=== PATIENT | male | born 1965 | race Caucasian/White ===

== ENCOUNTER 2016-02-10 10:35 | Inpatient (IN) | payer BC ==
[2016-01-22 11:04] VITALS: BMI 25.7
[2016-01-22 12:19] VITALS: BP_SYST 122; RESP 14; TEMP 97.9
[~2016-02-10] VITALS: Ht 172.7 cm; Wt 71.7 kg
[2016-02-17 08:16] VITALS: BMI 24.5
[2016-02-17 08:47] VITALS: BP_SYST 104; TEMP 97.5
[2016-03-02] VITALS (23 sets, daily range): BP systolic 86–107; RESP 12–18; TEMP 97.6–98.7; BMI 24.0
[2016-03-02] MEDS ORDERED: CEFOXITIN 2,000 MG in SODIUM CHLORIDE 0.9% 100 ML IV ONE (06:55)
[2016-03-02] MEDS ORDERED: ACETAMINOPHEN IV ONE (07:00)
[2016-03-02] MEDS ORDERED: FILL PIGGYBACK IV ONE (07:00)
[2016-03-02] MEDS ORDERED: GLYCOPYRROLATE 0.2 MG/ML VIAL IV ONE ×2 (07:15→14:27)
[2016-03-02] MEDS ORDERED: MIDAZOLAM 2 MG/2 ML INJ IV ONE (07:15)
[2016-03-02] MEDS ORDERED: LIDOCAINE 1% BUFFERED 1 ML SYR INTRADERM PRN (07:15)
[2016-03-02] MEDS ORDERED: ACETAMINOPHEN IV 100 ML IV ONE (08:06)
[2016-03-02] MEDS: LACT RINGERS 1,000 ML IV SCH ×2 (08:13→12:10)
[2016-03-02] MEDS ORDERED: ONDANSETRON 4 MG VIAL IV PRN ×2 (09:00→10:00)
[2016-03-02] MEDS ORDERED: NALOXONE 0.4 MG/ML AMP IV PRN (09:00)
[2016-03-02] MEDS ORDERED: MORPHINE 2 MG/ML SYR IV PRN ×2 (09:00→10:00)
[2016-03-02] MEDS ORDERED: hydrOXYzine 25 MG TAB PO PRN (09:00)
[2016-03-02] MEDS ORDERED: OXYCODONE 5 MG TAB PO PRN (10:00)
[2016-03-02] MEDS ORDERED: MEPERIDINE 25 MG/ML IV PRN (10:00)
[2016-03-02] MEDS ORDERED: MORPHINE 4 MG/ML SYR IV PRN (10:00)
[2016-03-02] MEDS ORDERED: DILAUDID 1 MG/ML AMP IV PRN (10:00)
[2016-03-02] MEDS ORDERED: MORPHINE PF 0.5 MG/ML 10 ML IV ONE (10:17)
[2016-03-02] MEDS ORDERED: PROMETHAZINE 25 MG/ML VIAL IV PRN (12:15)
[2016-03-02] MEDS ORDERED: CHLORASEPTIC 180 ML BTL PO PRN (12:15)
[2016-03-02] MEDS: BUPIV/FENT 0.125%-2MCG/ML 100 ML EPIDURAL SCH ×3 (12:19→19:50)
[2016-03-02] MEDS ORDERED: FENTANYL 100 MCG/2 ML AMP IV ONE (14:27)
[2016-03-02] MEDS ORDERED: PROPOFOL 20 ML PER ML IV ONE (14:27)
[2016-03-02] MEDS ORDERED: LIDOCAINE 2% SYR 5 ML IV ONE (14:27)
[2016-03-02] MEDS ORDERED: ROCURONIUM 50 MG VIAL IV ONE (14:27)
[2016-03-02] MEDS ORDERED: NEOSTIGMINE 10 MG/10 ML VIAL IV ONE (14:27)
[2016-03-02] MEDS ORDERED: ONDANSETRON 4 MG VIAL IV PUSH ONE (14:27)
[2016-03-02] MEDS ORDERED: MISSING DOSE XX ONE ×2 (15:35→19:45)
[2016-03-02] MEDS: BUTORPHANOL 1 MG/ML VIAL IV PRN ×2 (16:05→19:58)
[2016-03-02] MEDS: PIPERACIL/TAZO 3.375GM/50ML 50 ML IV SCH (18:20)
[2016-03-02] MEDS: **ONLY ANESTEHSIA MAY ORDER OPIATES WHILE ON EPIDURAL XX SCH (19:45)
[2016-03-02] MEDS: FAMOTIDINE 20 MG INJ IV SCH (19:55)
[2016-03-02] MEDS: PREDNISOLONE ACET 1% OP SUSP EYE RT SCH (19:57)
[2016-03-02] MEDS: DORZOL/TIM 2%-0.5% 10 ML EYE RT SCH (19:57)
[2016-03-02] MEDS: KETOROLAC 0.5% EYE RT SCH (19:58)
[2016-03-03] VITALS (7 sets, daily range): BP systolic 93–100; RESP 16–18; TEMP 98.1–99.2
[2016-03-03] MEDS: PIPERACIL/TAZO 3.375GM/50ML 50 ML IV SCH ×5 (00:12→23:50)
[2016-03-03] MEDS: D5-1/2-NS W/KCL 20MEQ/L 1,000 ML IV SCH ×3 (00:15→18:20)
[2016-03-03] MEDS: BUPIV/FENT 0.125%-2MCG/ML 100 ML EPIDURAL SCH ×3 (04:38→22:38)
[2016-03-03] MEDS: **ONLY ANESTEHSIA MAY ORDER OPIATES WHILE ON EPIDURAL XX SCH ×2 (08:00→19:59)
[2016-03-03] MEDS: FAMOTIDINE 20 MG INJ IV SCH ×2 (08:20→21:43)
[2016-03-03] MEDS: PREDNISOLONE ACET 1% OP SUSP EYE RT SCH ×2 (08:21→21:44)
[2016-03-03] MEDS: DORZOL/TIM 2%-0.5% 10 ML EYE RT SCH ×2 (08:21→21:44)
[2016-03-03] MEDS: KETOROLAC 0.5% EYE RT SCH ×2 (08:21→21:44)
[2016-03-03] MEDS: BUTORPHANOL 1 MG/ML VIAL IV PRN ×3 (09:42→22:16)
[2016-03-03] MEDS: BUPROPION SR 100 MG TAB PO SCH (09:42)
[2016-03-03] MEDS ORDERED: MISSING DOSE XX ONE (14:55)
[2016-03-04] MEDS: D5-1/2-NS W/KCL 20MEQ/L 1,000 ML IV SCH ×2 (02:43→20:15)
[2016-03-04 03:40] VITALS: BP_SYST 100; RESP 18; TEMP 99.2
[2016-03-04] MEDS: PIPERACIL/TAZO 3.375GM/50ML 50 ML IV SCH ×3 (06:44→18:08)
[2016-03-04 07:13] VITALS: BP_SYST 97; RESP 16; TEMP 98
[2016-03-04] MEDS: KETOROLAC 0.5% EYE RT SCH ×2 (07:45→21:34)
[2016-03-04] MEDS: DORZOL/TIM 2%-0.5% 10 ML EYE RT SCH ×2 (07:45→21:34)
[2016-03-04] MEDS: PREDNISOLONE ACET 1% OP SUSP EYE RT SCH ×2 (07:46→21:34)
[2016-03-04] MEDS: FAMOTIDINE 20 MG INJ IV SCH ×2 (07:46→20:01)
[2016-03-04] MEDS: **ONLY ANESTEHSIA MAY ORDER OPIATES WHILE ON EPIDURAL XX SCH ×2 (08:00→20:00)
[2016-03-04] MEDS: BUPIV/FENT 0.125%-2MCG/ML 100 ML EPIDURAL SCH ×2 (09:36→18:02)
[2016-03-04] MEDS: BUPROPION SR 100 MG TAB PO SCH (10:47)
[2016-03-04] MEDS: BUTORPHANOL 1 MG/ML VIAL IV PRN ×3 (10:47→20:11)
[2016-03-04 10:55] VITALS: Ht 172.7 cm; Wt 71.7 kg
[2016-03-04 11:22] VITALS: BP_SYST 107; RESP 18; TEMP 97.5
[2016-03-04 15:26] VITALS: BP_SYST 102; RESP 18; TEMP 98.4
[2016-03-04 20:01] VITALS: BP_SYST 101; RESP 18; TEMP 97.9
[2016-03-04 23:47] VITALS: BP_SYST 100; RESP 18; TEMP 97.9
[2016-03-05] MEDS: PIPERACIL/TAZO 3.375GM/50ML 50 ML IV SCH ×2 (00:33→06:17)
[2016-03-05 03:54] VITALS: BP_SYST 105; RESP 18; TEMP 98.3
[2016-03-05] MEDS: BUPIV/FENT 0.125%-2MCG/ML 100 ML EPIDURAL SCH (03:56)
[2016-03-05] MEDS: D5-1/2-NS W/KCL 20MEQ/L 1,000 ML IV SCH ×2 (04:17→15:46)
[2016-03-05] MEDS: BUTORPHANOL 1 MG/ML VIAL IV PRN ×2 (06:25→10:46)
[2016-03-05 07:50] VITALS: BP_SYST 106; RESP 16; TEMP 97.9
[2016-03-05] MEDS: **ONLY ANESTEHSIA MAY ORDER OPIATES WHILE ON EPIDURAL XX SCH (08:00)
[2016-03-05] MEDS: BUPROPION SR 100 MG TAB PO SCH (08:30)
[2016-03-05] MEDS: FAMOTIDINE 20 MG INJ IV SCH ×2 (08:30→19:56)
[2016-03-05] MEDS: PREDNISOLONE ACET 1% OP SUSP EYE RT SCH ×2 (08:30→19:57)
[2016-03-05] MEDS: KETOROLAC 0.5% EYE RT SCH ×2 (08:30→19:56)
[2016-03-05] MEDS: DORZOL/TIM 2%-0.5% 10 ML EYE RT SCH ×2 (08:30→19:57)
[2016-03-05 12:13] VITALS: BP_SYST 108; RESP 16; TEMP 97.9
[2016-03-05 16:07] VITALS: BP_SYST 113; RESP 16; TEMP 97.9
[2016-03-05] MEDS: DILAUDID 1 MG/ML AMP IV PRN ×2 (17:03→21:12)
[2016-03-05 19:51] VITALS: BP_SYST 119; RESP 16; TEMP 97.6
[2016-03-05 23:33] VITALS: BP_SYST 114; RESP 16; TEMP 97.5
[2016-03-06] MEDS: DILAUDID 1 MG/ML AMP IV PRN ×4 (00:13→21:44)
[2016-03-06] MEDS: D5-1/2-NS W/KCL 20MEQ/L 1,000 ML IV SCH ×2 (03:26→16:29)
[2016-03-06 03:36] VITALS: BP_SYST 116; RESP 16; TEMP 97.6
[2016-03-06 07:49] VITALS: BP_SYST 99; RESP 18; TEMP 97.5
[2016-03-06] MEDS: BUPROPION SR 100 MG TAB PO SCH (08:34)
[2016-03-06] MEDS: FAMOTIDINE 20 MG INJ IV SCH ×2 (08:35→19:55)
[2016-03-06] MEDS: PREDNISOLONE ACET 1% OP SUSP EYE RT SCH ×2 (08:36→19:56)
[2016-03-06] MEDS: KETOROLAC 0.5% EYE RT SCH ×2 (08:36→19:55)
[2016-03-06] MEDS: DORZOL/TIM 2%-0.5% 10 ML EYE RT SCH ×2 (08:36→19:56)
[2016-03-06 10:50] VITALS: BP_SYST 103; RESP 18; TEMP 97.5
[2016-03-06 15:31] VITALS: BP_SYST 112; RESP 18; TEMP 97.3
[2016-03-06] MEDS: ONDANSETRON 4 MG VIAL IV PRN (15:50)
[2016-03-06 19:31] VITALS: BP_SYST 110; RESP 16; TEMP 97.6
[2016-03-06 23:22] VITALS: BP_SYST 106; RESP 16; TEMP 97.6
[2016-03-07] MEDS: D5-1/2-NS W/KCL 20MEQ/L 1,000 ML IV SCH ×2 (03:59→20:15)
[2016-03-07 04:00] VITALS: BP_SYST 112; RESP 16; TEMP 97.7
[2016-03-07] MEDS: BUPROPION SR 100 MG TAB PO SCH (08:09)
[2016-03-07] MEDS: FAMOTIDINE 20 MG INJ IV SCH ×2 (08:09→19:37)
[2016-03-07] MEDS: PREDNISOLONE ACET 1% OP SUSP EYE RT SCH ×2 (08:10→20:15)
[2016-03-07] MEDS: KETOROLAC 0.5% EYE RT SCH ×2 (08:11→20:14)
[2016-03-07] MEDS: DORZOL/TIM 2%-0.5% 10 ML EYE RT SCH ×2 (08:11→20:14)
[2016-03-07 08:20] VITALS: BP_SYST 114; RESP 15; TEMP 97.5
[2016-03-07] MEDS: ONDANSETRON 4 MG VIAL IV PRN ×3 (11:02→19:37)
[2016-03-07 11:47] VITALS: BP_SYST 119; RESP 15; TEMP 97.9
[2016-03-07 15:53] VITALS: BP_SYST 111; RESP 15; TEMP 98
[2016-03-07 20:09] VITALS: BP_SYST 112; RESP 16; TEMP 97.9
[2016-03-07 23:57] VITALS: BP_SYST 113; RESP 16; TEMP 97.5
[2016-03-08 04:05] VITALS: BP_SYST 110; RESP 16; TEMP 97.9
[2016-03-08 07:31] VITALS: BP_SYST 116; RESP 16; TEMP 97.9
[2016-03-08] MEDS: PREDNISOLONE ACET 1% OP SUSP EYE RT SCH ×2 (08:26→20:02)
[2016-03-08] MEDS: BUPROPION SR 100 MG TAB PO SCH (08:26)
[2016-03-08] MEDS: FAMOTIDINE 20 MG INJ IV SCH ×2 (08:26→20:02)
[2016-03-08] MEDS: KETOROLAC 0.5% EYE RT SCH ×2 (08:27→20:03)
[2016-03-08] MEDS: DORZOL/TIM 2%-0.5% 10 ML EYE RT SCH ×2 (08:27→20:03)
[2016-03-08] MEDS: D5-1/2-NS W/KCL 20MEQ/L 1,000 ML IV SCH (10:18)
[2016-03-08] MEDS: DOCUSATE SOD 100 MG CAP PO SCH ×2 (10:19→20:03)
[2016-03-08 11:13] VITALS: BP_SYST 153; RESP 16; TEMP 98
[2016-03-08 15:03] VITALS: BP_SYST 112; RESP 16; TEMP 97.4
[2016-03-08 19:35] VITALS: BP_SYST 107; RESP 16; TEMP 97.3
[2016-03-08 23:00] VITALS: BP_SYST 104; RESP 16; TEMP 97.7
[2016-03-09 03:25] VITALS: BP_SYST 107; RESP 16; TEMP 97.8
[2016-03-09] MEDS: D5-1/2-NS W/KCL 20MEQ/L 1,000 ML IV SCH (05:07)
[2016-03-09 07:09] VITALS: BP_SYST 104; RESP 16; TEMP 97.5
[2016-03-09] MEDS: KETOROLAC 0.5% EYE RT SCH (09:33)
[2016-03-09] MEDS: DORZOL/TIM 2%-0.5% 10 ML EYE RT SCH (09:33)
[2016-03-09] MEDS: PREDNISOLONE ACET 1% OP SUSP EYE RT SCH (09:33)
[2016-03-09] MEDS: FAMOTIDINE 20 MG INJ IV SCH (09:34)
[2016-03-09] MEDS: BUPROPION SR 100 MG TAB PO SCH (09:34)
[2016-03-09] MEDS: DOCUSATE SOD 100 MG CAP PO SCH (09:35)
[2016-03-09 10:26] VITALS: BP_SYST 104; RESP 16; TEMP 97.5
[2016-03-09 10:51] VITALS: BP_SYST 104; RESP 16; TEMP 97.5
== END 2016-03-09 14:44 | disposition home or self-care (01) | DRG 337 ==
LOC: ENRESERVDT → ENRESERVTM → SDS 03-02 06:54 → 5THW 03-02 12:51
PROVIDERS: ADMIT Surgery; ATTEND Surgery
PROC: 0DQE0ZZ Repair Large Intestine, Open Approach (ICD-10-PCS; 2016-03-02)
PROC: 0WQFXZ2 Repair Abdominal Wall, Stoma, External Approach (ICD-10-PCS; 2016-03-02)
PROC: 0DNE0ZZ Release Large Intestine, Open Approach (ICD-10-PCS; principal; 2016-03-02 08:25)
CPT/HCPCS: 80048; 84145; 85025; 88302; 88304; 94762; 94799